=== PATIENT | male | born 1955 | race Caucasian/White ===

== ENCOUNTER 2017-12-31 12:47 | Emergency (ER) | payer OTHER ==
[~2017-12-31] VITALS: Ht 185.4 cm; Wt 118.1 kg
[~2017-12-31 12:47] MED LIST: ADULT LOW DOSE81 M1 PO; ANTIVERT25 MG PO; AZOR 10/40 M1 TABLET PO; BENICAR40 MG PO; FORTAMET1000 M1 PO; GLIPIZIDE XL5 MG PO; GLUCOPHAGE500 MG PO; LIPITOR20 MG PO; LOVAZA1 GM PO; METFORMIN HCL1000 MG PO; PRAVASTATIN SOD20 MG PO; TRADJENTA5 MG PO
[2017-12-31 13:45] LABS: HEMATOCRIT 46.1 % (38.0-50.0); HEMOGLOBIN 15.6 G/DL (12.5-16.6); MCH 28.2 PG (29.0-34.0); MCHC 33.8 G/DL (30.0-36.0); MCV 83.2 FL (86-99); PLATELET COUNT 270 K/uL (156-360); RBC DIS.WIDTH-CV 12.9 % (11.8-14.6); RBC DIS.WIDTH-SD 39.1 % (39-53); RED BLOOD COUNT 5.54 M/uL (4.00-5.50)
[2017-12-31 13:57] LABS: ALBUMIN 4.5 g/dL (3.2-4.8)
[2017-12-31 13:58] LABS: CHLORIDE 100 mEq/L (99-109); POTASSIUM 4.5 mEq/L (3.7-5.4); SODIUM 139 mEq/L (136-147)
[2017-12-31 14:00] LABS: GLUCOSE 252 mg/dL (70-99); TOTAL PROTEIN 7.9 g/dL (6.4-8.3)
[2017-12-31 14:02] LABS: TOTAL BILIRUBIN 1.4 mg/dL (0.0-1.0)
[2017-12-31 14:03] LABS: ALKALINE PHOSPHATASE 105 IU/L (3-129)
[2017-12-31 14:04] LABS: CREATININE 0.8 mg/dL (0.6-1.3); GFR ESTIMATE (CALCULATED) > 59 mL/min/ (58.99-99999)
[2017-12-31 14:05] LABS: AST (GOT) 39 IU/L (2-34); UREA NITROGEN (BUN) 14 mg/dL (9-23)
[2017-12-31 14:07] LABS: ALT (GPT) 89 IU/L (3-49)
[2017-12-31 17:07] LABS: TROP-I INTERPRETATION NEGATIVE; TROPONIN-I 0.01 ng/mL (0.0-0.30)
[2017-12-31 17:07] LABS: APPEARANCE CLEAR ((CLEAR)); BILIRUBIN NEGATIVE; BLOOD NEGATIVE; COLOR YELLOW ((YELLOW)); GLUCOSE (STRIP) >=500; KETONES 20; LEUKOCYTES NEGATIVE; NITRITE NEGATIVE; PROTEIN (STRIP) 100; SPECIFIC GRAVITY 1.027 (1.000-1.030); UROBILINOGEN 0.2 MG/DL (0.2-1.0)
[2017-12-31 17:20] LABS: BACTERIA NONE SEEN /HPF; EPITHELIAL CELLS RARE /HPF; MUCUS TRACE /LPF; UCUL ADDED? NO; WHITE BLOOD CELLS 0-5 /HPF (0-5)
[2017-12-31] MEDS ORDERED: ZOFRAN ODT4 MG PO (20:25)
[2017-12-31 20:47] VITALS: BP 168/77
== END 2017-12-31 20:49 | disposition home or self-care (01) ==
LOC: EME 12:47
PROVIDERS: Emergency Medicine
DX: I10 Essential (primary) hypertension (principal); E11.65 Type 2 diabetes mellitus with hyperglycemia; E78.5 Hyperlipidemia, unspecified; Z79.84 Long term (current) use of oral hypoglycemic drugs
CPT/HCPCS: 70450; 80053; 81003; 82948; 84484; 85027; 93005; 99281; 99285; J7120